=== PATIENT | female | born 1950 | race Caucasian/White ===

== ENCOUNTER 2016-07-08 17:04 | Emergency (ER) | payer MEDICARE | END 2016-07-08 20:48 | disposition home or self-care (01) | LOC: ER 17:04 | DX: S80.811A Abrasion, right lower leg, initial encounter (principal); E11.65 Type 2 diabetes mellitus with hyperglycemia; I10 Essential (primary) hypertension; E87.6 Hypokalemia; E86.0 Dehydration; Z79.4 Long term (current) use of insulin; Z90.710 Acquired absence of both cervix and uterus; Z79.82 Long term (current) use of aspirin; Z88.5 Allergy status to narcotic agent; W22.8XXA Striking against or struck by other objects, initial encounter | CPT/HCPCS: 36415; 96361; 96374 ==